=== PATIENT | female | born 1950 | race Caucasian/White ===

== ENCOUNTER → 2016-09-21 | Outpatient (CLI) | payer OTHER, MEDICARE ==
--- NOTE | 2016-09-21 21:29 | DI ---
XR CXR 2VW PA/LAT,09/21/2016 3:28 PM: Clinical History: Cough Previous Exam: None at this facility. Findings: PA and lateral views of the chest are obtained, and demonstrate postsurgical changes within the right chest wall. The cardiomediastinum and bony thorax are unremarkable. A nonobstructive bowel gas pattern is seen. N o pathologic calcifications are seen. Impression: Postsurgical changes otherwise unremarkable.
== END ==
LOC: RAD 15:53
PROVIDERS: ATTEND Family Medicine
DX: R05 Cough (principal); J06.9 Acute upper respiratory infection, unspecified
CPT/HCPCS: 71020; 99214; G0463

== ENCOUNTER → 2017-03-09 | Outpatient (CLI) | payer OTHER, MEDICARE | LOC: MMPC 09:00 | DX: J30.89 Other allergic rhinitis (principal) | CPT/HCPCS: 99212; G0463; J3301 ==

== ENCOUNTER → 2017-04-02 | Outpatient (CLI) | payer OTHER, MEDICARE | LOC: MMPC 09:00 | PROVIDERS: ATTEND Family Medicine | DX: M79.674 Pain in right toe(s) (principal) | CPT/HCPCS: 99213; G0463 ==